=== PATIENT | male | born 1940 | race Caucasian/White ===

== ENCOUNTER 2021-11-27 04:09 | Emergency (ER) | payer MEDICARE, BC ==
[2021-11-27] MEDS ORDERED: Sodium Chloride 0.9% 10 ML Syringe FLUSH PRN (04:21)
[2021-11-27] MEDS ORDERED: Furosemide 40 MG Tab PO ONE (05:32)
[2021-11-27] MEDS ORDERED: Aspirin 81 MG Tab.Chew PO ONE (07:38)
[2021-11-27] MEDS ORDERED: Heparin Sodium 5,000 Units/ML Vial IVPUSH ONE (07:39)
[2021-11-27] MEDS ORDERED: Heparin Sodium/D5W 25,000 UNITS/500 ML BAG IV SCH ×2 (07:45→08:45)
[2021-11-27 08:51] LABS: CORONAVIRUS COVID-19 NAA NEGATIVE (NEGATIVE)
[2021-11-27 16:37] VITALS: BP 118/76; PULSE 62
== END 2021-11-27 16:50 ==
LOC: JD.ED 04:09
DX: I21.4 Non-ST elevation (NSTEMI) myocardial infarction (principal); R79.89 Other specified abnormal findings of blood chemistry; I10 Essential (primary) hypertension; Z72.0 Tobacco use; Z79.82 Long term (current) use of aspirin; Z79.899 Other long term (current) drug therapy; Z20.822 Contact with and (suspected) exposure to COVID-19
CPT/HCPCS: 0240U; 36415; 71045; 80053; 82553; 83880; 84484; 85025; 85610; 85730; 86140; 93005; 93306; 96365; 96366; 99285; A9270; J1644; U0002